=== PATIENT | male | born 1990 | race Caucasian/White ===

== ENCOUNTER → 2018-10-22 | Outpatient (CLI) | payer BC ==
--- NOTE | 2018-10-22 15:59 | KCIC ---
EXAM: Left knee, 4 views. HISTORY: Twisting injury. COMPARISON: None. FINDINGS: 4 views of the left knee are obtained. There is no fracture, dislocation or subluxation. There is a moderate suprapatellar effusion. IMPRESSION: Moderate left knee effusion. Electronically signed by: Galina Waite MD (10/22/2018 3:55 PM) [facility]
== END | disposition home or self-care (01) ==
LOC: KCIC 15:21
PROVIDERS: ATTEND Family Medicine
DX: M25.462 Effusion, left knee (principal)
CPT/HCPCS: 73564

== ENCOUNTER → 2018-11-11 | Outpatient (CLI) | payer BC ==
[~2018-11-11] MED LIST: ATOR10TA60 PO; CETI10TA22 PO; DIPH50CA PO; OMEP40CA5 PO; OXYC1TAB19 PO; PROM25TA10 PO
--- NOTE | 2018-11-11 14:43 | KCIC ---
MR of the left knee Indication: Pain for 2 or 3 months, some swelling. No known injury. Comparison: None are available. Technique: The standard multiplanar sequences are obtained. FINDINGS: Artifact: No significant image degradation. Medial meniscus: Tear of the posterior horn. Lateral meniscus: Intact. Anterior cruciate ligament: Intact. Posterior cruciate ligament: Intact Medial collateral ligament: Intact. Lateral structures: * Iliotibial band: Intact. * Lateral collateral ligament: Intact. * Biceps femoris tendon: Intact * Popliteus tendon attachment: Intact Extensive mechanism: * Patellar tendon: Intact * Quadriceps tendon: Intact * Retinacular structures: Intact Fluid: Moderate joint effusion. No significant Winters's cyst. Intra-articular bodies: None visualized Joint compartments * patellofemoral joint: Mild chondromalacia of the patella. * medial compartment: Moderate to severe chondral thinning of the medial femoral condyle with minimal subjacent marrow edema. * lateral compartment:Intact Bones: Tiny bone lesion within the proximal tibial metaphysis, adjacent to the growth plate scar, measures 5 mm, likely a small cartilaginous rest or other benign process. Soft tissue: Unremarkable Impression: 1. Medial meniscal tear. 2. Primary osteoarthritis. 3. Moderate joint effusion. Electronically signed by: Chris Hester MD (11/11/2018 2:38 PM) [email or web address]
== END | disposition home or self-care (01) ==
LOC: KCIC MRI 12:19
PROVIDERS: ATTEND Orthopaedic Surgery
DX: S83.242A Other tear of medial meniscus, current injury, left knee, initial encounter (principal); M17.12 Unilateral primary osteoarthritis, left knee; M25.462 Effusion, left knee; M22.42 Chondromalacia patellae, left knee; R60.0 Localized edema; X58.XXXA Exposure to other specified factors, initial encounter; Y93.89 Activity, other specified; Y92.89 Other specified places as the place of occurrence of the external cause; Y99.8 Other external cause status
CPT/HCPCS: 73721

== ENCOUNTER → 2018-12-03 | Day surgery (SDC) | payer BC ==
[~2018-12-03] VITALS: Ht 182.9 cm; Wt 157.9 kg
[~2018-12-03] MED LIST changes: +BUPIVAC MPF-EPI 0.5%-1:200000 30 ML VIAL. ONE; +BUPIVACAINE-EPI 0.25%-1:200000 MPF 30 ML VIAL. ONE; +DEXAMETHASONE SOD PHOS 20 MG/5 ML VIAL. ONE; +EPINEPHrine VIAL 30 MG/30 ML VIAL ONE; +FAMOTIDINE 20 MG/2 ML VIAL ONE; +HYDROmorphone 2 MG/ML VIAL IV PRN; +IV RINGERS,LACTATED 1000ML 1,000 ML IV SCH; +KETOROLAC 30 MG/ML VIAL. IV ONE; +KETOROLAC 30 MG/ML VIAL. ONE; +LIDOCAINE 1% PF 2 ML VIAL. ID PRN; +LIDOCAINE 2% PF Vial for OR 5 ML VIAL. ONE; +MORPHINE SULFATE 4 MG/ML VIAL. IV PRN; +ONDANSETRON PF 4 MG/2 ML VIAL. IV PRN; +ONDANSETRON PF 4 MG/2 ML VIAL. ONE; +PROCHLORPERAZINE 10 MG/2 ML VIAL. IV PRN; +PROPOFOL 20 ML IV ONE; +ceFAZolin SODIUM 3 GM in IV DEXTROSE 5% 100ML 100 ML IV PRN; +fentaNYL PF VIAL 100 MCG/2 ML VIAL IV PRN; +fentaNYL PF VIAL 100 MCG/2 ML VIAL ONE; +oxyCODONE/APAP 7.5/325 1 TAB TABLET PO ONE
--- NOTE | 2018-12-03 12:08 | PDOC1 ---
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 He twisted his knee or tweaked it some time before [place], around [place]. He's been limping since then. He thinks it might have happened when he was cleaning up after framing a house. He saw Dr. Rose who was concerned about internal injury such as meniscus tear. Twisted Knee around [place]. Started wearing brace. Reduced ROM and stability. Squatting kneeling and stairs exacerbate the pain. Twisting and uneven surfaces exacerbate the pain. Reports sharp pains anteriorly and a deep pain posteriorly. He reports giving way, locking, and swelling. He had a left knee MRI on 11/11/2018, which shows a left knee medial meniscus tear. Past Medical History Past Medical History obesity, seasonal allergies GI: GERD Past Surgical History Past Surgical History: Appendectomy, Tonsillectomy Family History Family History: No Significant Social History Smoke: No Current Medications Current Medications Current Medications Ondansetron HCl (Zofran) 4 mg PRN Q6HRS PRN IV NAUSEA/VOMITING; Start 12/03/18 at 07:00; Stop 12/04/18 at 06:59 Fentanyl Citrate (Fentanyl 2ml Vial) 25 mcg PRN Q5MIN PRN IV MILD PAIN; Start 12/03/18 at 07:00; Stop 12/04/18 at 06:59 Fentanyl Citrate (Fentanyl 2ml Vial) 50 mcg PRN Q5MIN PRN IV MODERATE TO SEVERE PAIN; Start 12/03/18 at 07:00; Stop 12/04/18 at 06:59 Morphine Sulfate (Morphine Sulfate) 1 mg PRN Q10MIN PRN IV SEVERE PAIN; Start 12/03/18 at 07:00; Stop 12/04/18 at 06:59 Ringer's Solution 1,000 ml @ 30 mls/hr Q24H IV Last administered on 12/03/18at 10:54; Start 12/03/18 at 07:00; Stop 12/03/18 at 18:59 Lidocaine HCl (Xylocaine-Mpf 1% 2ml Vial) 2 ml PRN 1X PRN ID IV START; Start at 07:00; Stop 12/04/18 at 06:59 Hydromorphone HCl (Dilaudid) 0.5 mg PRN Q10MIN PRN IV SEV PAIN, Second choice; Start 12/03/18 at 07:00; Stop 12/04/18 at 06:59 Prochlorperazine Edisylate (Compazine) 5 mg PACU PRN PRN IV NAUSEA, MRX1; Start 12/03/18 at 07:00; Stop 12/04/18 at 06:59 Cefazolin Sodium 3 gm/Dextrose 100 ml @ 200 mls/hr 1X PREOP PRN IV PRIOR TO PROCEDURE; Start 12/03/18 at 06:00; Stop 12/03/18 at 15:00 Epinephrine HCl (Adrenalin) 30 mg STK-MED ONCE .ROUTE Last administered on 12/03at 07:43; Start 12/03/18 at 07:05; Stop 12/03/18 at 07:06; Status DC Bupivacaine HCl/ Epinephrine Bitart (Sensorcaine-Epi 0.25%-1:[id number] Mpf) 30 ml STK-MED ONCE .ROUTE Last administered on 12/03/18at 07:43; Start 12/03/18 at 07: 05; Stop 12/03/18 at 07:06; Status DC Propofol 20 ml @ As Directed STK-MED ONCE IV ; Start 12/03/18 at 12:00; Stop at 12:01; Status DC Famotidine (Pepcid Vial) 20 mg STK-MED ONCE .ROUTE ; Start 12/03/18 at 12:00; Stop 12/03/18 at 12:01; Status DC Lidocaine HCl (Lidocaine Pf 2% Vial) 5 ml STK-MED ONCE .ROUTE ; Start 12/03/18 at 12:00; Stop 12/03/18 at 12:01; Status DC Active Scripts Active Reported Diphenhydramine Hcl 50 Mg Capsule 1 Cap PO PRN PRN Omeprazole 40 Mg Capsule.dr 1 Cap PO DAILY Zyrtec (Cetirizine Hcl) 10 Mg Tablet 1 Tab PO DAILY Atorvastatin Calcium 10 Mg Tablet 1 Tab PO DAILY Allergies Allergies: Coded Allergies: No Known Drug Allergies (Unverified , 12/03/18) ROS General: No: Chills, Night Sweats Eyes: No Double vision, No Eye Pain HEENT: No: Heacaches Hematological and Lymphatic: No: Blood Clots Respiratory: No: Shortness of breath Cardiovascular: No Chest Pain Gastrointestinal: No Nausea, No Vomiting, No Diarrhea, No Constipation Genitourinary: No Dysuria, No Hematuria Musculoskeletal: Yes Joint Pain Neurological: No Confusion, No Dizziness Physical Exam General: Alert, Cooperative, No acute distress HEENT: Atraumatic Lungs: Normal air movement Abdomen: Soft Extremities: No cyanosis, No edema, Normal pulses, Other (The LEFT knee shows normal alignment, no masses and no effusion. There is tenderness at the medial joint line and a positive medial Eileen's test. The lateral joint line shows no tenderness. Range of motion is 0-135 degrees. There is trace patellofemoral crepitus. Eileen's test is positive. There is medial joint line pain with deep flexion and especially with rotation of the tibia. The knee is stable to varus and valgus stress without subluxation or laxity. The ACL feels intact on Dk testing. Muscle strength is normal (5/5) for quadriceps and hamstrings, and muscle tone is normal. The skin is normal with no scars, rashes, lesions or ulcers. Light touch sensation is intact. No edema and no varicosities. Dorsalis pedis pulse is intact and capillary refill is normal ) Skin: No rashes, No breakdown, No significant lesion Neuro: Normal speech, Strength at 5/5 X4 ext, Sensation intact Vitals Vitals Vital Signs Date Time Temp Pulse Resp B/P (MAP) Pulse Ox O2 Delivery O2 Flow Rate FiO2 12/03/18 10:47 97.9 72 134/80 96 97.9 12/03/18 10:44 20 Images Images PROCEDURE: LOWER EXT JOINT WO LT MR of the left knee Indication: Pain for 2 or 3 months, some swelling. No known injury. Comparison: None are available. Technique: The standard multiplanar sequences are obtained. FINDINGS: Artifact: No significant image degradation. Medial meniscus: Tear of the posterior horn. Lateral meniscus: Intact. Anterior cruciate ligament: Intact. Posterior cruciate ligament: Intact Medial collateral ligament: Intact. Lateral structures: * Iliotibial band: Intact. * Lateral collateral ligament: Intact. * Biceps femoris tendon: Intact * Popliteus tendon attachment: Intact Extensive mechanism: * Patellar tendon: Intact * Quadriceps tendon: Intact * Retinacular structures: Intact Fluid: Moderate joint effusion. No significant Winters's cyst. Intra-articular bodies: None visualized Joint compartments * patellofemoral joint: Mild chondromalacia of the patella. * medial compartment: Moderate to severe chondral thinning of the medial femoral condyle with minimal subjacent marrow edema. * lateral compartment:Intact Bones: Tiny bone lesion within the proximal tibial metaphysis, adjacent to the growth plate scar, measures 5 mm, likely a small cartilaginous rest or other benign process. Soft tissue: Unremarkable Impression: 1. Medial meniscal tear. 2. Primary osteoarthritis. 3. Moderate joint effusion. Electronically signed by: Chris Hestre MD (11/11/2018 2:38 PM) [facility]. VTE Prophylaxis Ordered VTE Prophylaxis Devices: Yes VTE Pharmacological Prophylaxi: Yes Assessment/Plan Assessment/Plan left knee medial meniscus tear Plan left knee arthroscopy with medial meniscectomy JASON DOWD MD Dec 03, 2018 12:08
--- NOTE | 2018-12-03 13:17 | PDOC4 ---
Operative Note Operative Note Date of Procedure: December 03, 2018 Preoperative Diagnosis: Complex tear of medial meniscus, current injury, left knee S83.232 Postoperative Diagnosis: same Procedures Performed: left knee arthroscopy, surgical, with meniscectomy, medial, including meniscal shaving, including debridement/shaving of articular cartilage (chondroplasty) CPT 33930 Surgeon: Jason Smith MD Anesthesia: General Estimated Blood Loss: 10 mL Specimens: none Drains: none Complications: none Tourniquet time: 22 minutes INDICATIONS FOR PROCEDURE: The patient is a 28-year-old with left knee pain, unrelieved with nonoperative treatment. Exam and MRI are consistent with a meniscus tear. We talked about the risks and benefits of proceeding with an arthroscopic procedure. We talked about potential risks of ongoing pain, progressive arthritis, bleeding, infection, blood clots, or other potential surgical or anesthetic complications. All of the patient's questions about surgery were answered and they desired to proceed. Written consent was obtained. PROCEDURE IN DETAIL: The patient was identified in the preoperative holding area. The correct left knee was marked by me. The patient was taken to the operating room, where a general anesthetic was used. Preoperative antibiotics were given intravenously. A time-out procedure was performed. A tourniquet was placed on the upper thigh. Local anesthetic with epinephrine was injected sterilely into the knee joint. The limb was prepped sterilely and sterile drapes were applied. The limb was exsanguinated with an Esmarch bandage and the tourniquet was inflated to 350 mm Hg. Lateral and medial arthroscopy portals were established. The medial meniscus showed a posterior horn tear with unstable flaps. A meniscectomy was performed with basket forceps and the motorized shaver back to a smooth stable base, and the resection tapered into the middle one-third of the meniscus.The medial tibiofemoral joint showed chondromalacia Outerbridge grade III, and a shaving chondroplasty was performed removing unstable fragments of cartilage with the shaver.The intercondylar notch was free of loose bodies, and the ACL was intact. The lateral tibiofemoral joint showed a normal lateral meniscus. The lateral articular surfaces showed normal articular surfaces so no chondroplasty was required. The patellofemoral joint showed chondromalacia Outerbridge grade II, so a shaving chondroplasty was performed removing loose unstable fragments of articular cartilage. The suprapatellar pouch, medial and lateral gutters were free of loose bodies. Copious irrigation was used to drain all meniscal and chondral fragments, and the knee was drained of fluid. Steri-Strips were applied and additional local anesthetic with epinephrine was injected. A bulky sterile dressing was applied and the tourniquet was released. Needle and sponge counts were correct and there were no apparent complications. Jason Smith MD 12/03/2018 1:08 PM JASON SMITH MD Dec 03, 2018 13:17
[2018-12-03 14:00] VITALS: BP 145/80
== END | disposition home or self-care (01) ==
LOC: SURG 10:27
PROVIDERS: ATTEND Orthopaedic Surgery
DX: S83.232A Complex tear of medial meniscus, current injury, left knee, initial encounter (principal); M17.12 Unilateral primary osteoarthritis, left knee; M25.462 Effusion, left knee; K21.9 Gastro-esophageal reflux disease without esophagitis; E66.9 Obesity, unspecified; J30.2 Other seasonal allergic rhinitis; Z90.49 Acquired absence of other specified parts of digestive tract; Z98.890 Other specified postprocedural states; Z79.899 Other long term (current) drug therapy; X58.XXXA Exposure to other specified factors, initial encounter; Y93.89 Activity, other specified; Y92.89 Other specified places as the place of occurrence of the external cause; Y99.8 Other external cause status
CPT/HCPCS: 29881; A7015; J0171; J1100; J1885; J2001; J2405; J2704; J3010; J3490; J7120

== ENCOUNTER → 2019-08-08 | Outpatient (CLI) | payer BC ==
[2018-12-03 14:00] VITALS: BP 145/80
[~2019-08-08] MED LIST changes: -BUPIVAC MPF-EPI 0.5%-1:200000 30 ML VIAL. ONE; -BUPIVACAINE-EPI 0.25%-1:200000 MPF 30 ML VIAL. ONE; -DEXAMETHASONE SOD PHOS 20 MG/5 ML VIAL. ONE; -EPINEPHrine VIAL 30 MG/30 ML VIAL ONE; -FAMOTIDINE 20 MG/2 ML VIAL ONE; -HYDROmorphone 2 MG/ML VIAL IV PRN; -IV RINGERS,LACTATED 1000ML 1,000 ML IV SCH; -KETOROLAC 30 MG/ML VIAL. IV ONE; -KETOROLAC 30 MG/ML VIAL. ONE; -LIDOCAINE 1% PF 2 ML VIAL. ID PRN; -LIDOCAINE 2% PF Vial for OR 5 ML VIAL. ONE; -MORPHINE SULFATE 4 MG/ML VIAL. IV PRN; +OMEP40CA45 PO; -OMEP40CA5 PO; -ONDANSETRON PF 4 MG/2 ML VIAL. IV PRN; -ONDANSETRON PF 4 MG/2 ML VIAL. ONE; -PROCHLORPERAZINE 10 MG/2 ML VIAL. IV PRN; -PROPOFOL 20 ML IV ONE; -ceFAZolin SODIUM 3 GM in IV DEXTROSE 5% 100ML 100 ML IV PRN; -fentaNYL PF VIAL 100 MCG/2 ML VIAL IV PRN; -fentaNYL PF VIAL 100 MCG/2 ML VIAL ONE; -oxyCODONE/APAP 7.5/325 1 TAB TABLET PO ONE
--- NOTE | 2019-08-08 16:38 | KCIC ---
MR of the left knee HISTORY: Left knee pain medially. Prior meniscal surgery. COMPARISON: November 11, 2018. FINDINGS: Medial meniscus is small and blunted, particularly the body segment, compatible with prior meniscectomy. Subtle signal and undersurface irregularity at the posterior horn, which was not seen previously, raising the question of a small recurrent tear, sagittal images 21 and 20. No evidence of lateral meniscal tear. Anterior and posterior cruciate ligaments are intact. Medial collateral ligament demonstrates mild proximal thickening without acute tear. Iliotibial band unremarkable. Fibular collateral ligament, biceps femoris tendon and popliteus tendon are intact. Extensor mechanism is intact. Large joint effusion. No significant Winters's cyst. Full-thickness articular cartilage defect at the upper central femoral trochlea measuring 14 mm x 5 mm. This was not present on the prior study. Moderate to severe chondral thinning of the medial femoral condyle is again seen. Previously seen subchondral marrow edema is not evident on the current exam. Small flat structure identified within the anteromedial joint recess, axial series 3, image 19, measuring 4 x 3 x 1 mm. This may represent a small loose cartilaginous fragment from the femoral trochlea defect. No acute fracture or aggressive bone destruction. No significant Winters's cyst. IMPRESSION: 1. Development of full-thickness articular cartilage defect at the upper central trochlear groove. 2. Small flat structure within the anteromedial joint fluid likely a small displaced articular cartilage fragment. 3. Medial meniscectomy. Subtle signal at the inferior surface of the posterior horn was not seen previously, and at least raises the question of a very small recurrent tear. Electronically signed by: Chris Hester MD (08/08/2019 4:35 PM) [facility]
== END | disposition home or self-care (01) ==
LOC: KCIC MRI 15:29
PROVIDERS: ATTEND Orthopaedic Surgery
DX: M25.462 Effusion, left knee (principal); Z98.890 Other specified postprocedural states
CPT/HCPCS: 73721

== ENCOUNTER 2019-09-30 10:47 | Day surgery (SDC) | payer BC ==
[~2019-09-30 10:47] MED LIST changes: +AZEL137S3 NS; +HYDROmorphone 2 MG/ML VIAL IV PRN; +IV RINGERS,LACTATED 1000ML 1,000 ML IV SCH; +LEVO5TAB29 PO; +LIDOCAINE 1% PF 2 ML VIAL. ID PRN; +MONT10TA49 PO; +MORPHINE SULFATE 2 MG/ML VIAL. IV PRN; +ONDANSETRON PF 4 MG/2 ML VIAL. IV PRN; +PROCHLORPERAZINE 10 MG/2 ML VIAL. IV PRN; +ceFAZolin SODIUM 3 GM in IV DEXTROSE 5% 100ML 100 ML IV PRN; +fentaNYL PF VIAL 100 MCG/2 ML VIAL IV PRN
[2019-09-30] MEDS ORDERED: ceFAZolin SODIUM 3 GM in IV DEXTROSE 5% 100ML 100 ML IV PRN (12:00)
[2019-09-30] MEDS ORDERED: DEXAMETHASONE SOD PHOS 4 MG/ML VIAL ONE (12:44)
[2019-09-30] MEDS ORDERED: PROPOFOL 20 ML IV ONE ×2 (12:44→16:50)
[2019-09-30] MEDS ORDERED: ONDANSETRON PF 4 MG/2 ML VIAL. ONE (12:44)
[2019-09-30] MEDS ORDERED: fentaNYL PF VIAL 100 MCG/2 ML VIAL ONE ×2 (12:45→18:02)
[2019-09-30] MEDS ORDERED: KETOROLAC 30 MG/ML VIAL. ONE (12:48)
[2019-09-30] MEDS ORDERED: EPINEPHrine VIAL 30 MG/30 ML VIAL ONE (16:00)
[2019-09-30] MEDS ORDERED: BUPIVACAINE MPF 0.25% 30 ML VIAL. ONE ×2 (16:00)
[2019-09-30] MEDS ORDERED: LIDOCAINE 2% PF 5 ML VIAL. ONE (16:46)
[2019-09-30] MEDS ORDERED: DESFLURANE 61 TO 120 MINUTES IH ONE (17:55)
[2019-09-30] MEDS: fentaNYL PF VIAL 100 MCG/2 ML VIAL IV PRN ×2 (18:06→18:17)
[2019-09-30] MEDS ORDERED: ASPI325T11 PO (18:34)
[2019-09-30] MEDS ORDERED: OXYC1TAB15 PO (18:39)
--- NOTE | 2019-09-30 18:39 | PDOC4 ---
Operative Note Operative Note Date of Procedure: September 30, 2019 Preoperative Diagnosis: left knee medial meniscus tear, and loose body Postoperative Diagnosis: 1. complex tear of medial meniscus, current injury, left knee, initial encounter S83.232A 2. complex tear of lateral meniscus, current injury, left knee, initial enc ounter S83.272A 3. multiple cartilaginous loose bodies of the left knee, M23.42 Procedures Performed: 1. left knee arthroscopy, surgical, with meniscectomy, medial AND lateral, including meniscal shaving, including debridement/shaving of articular cartilage (chondroplasty) CPT 61864 2. Left knee arthroscopy surgical for removal of loose body, chondral fragmentation greater than five millimeters total, CPT 52288 Surgeon: Jason Smith MD Anesthesia: General Estimated Blood Loss: 5 mL Specimens: none Drains: none Complications: none Tourniquet time: 27 minutes Indications for Procedure: The patient is a 29-year-old with left knee pain unrelieved with nonoperative treatment. He had an arthroscopic meniscectomy of this same knee earlier this year. He has had recurrent knee effusions and mechan ical symptoms. An MRI shows a possible re-tear of the medial meniscus, and probable chondral fragmentation and chondral loose bodies in the knee. We talked about the risks and benefits of proceeding with an arthroscopic procedure. We talked about potential risks of ongoing pain, progressive arthritis, bleeding, infection, blood clots, or other potential surgical or anesthetic complications. All of the patient's questions about surgery were answered and they desired to proceed. Written consent was obtained. Description of Operation: The patient was identified in the preoperative holding area. The correct left knee was marked by me. The patient was taken to the operating room, where a general anesthetic was used. Preoperative antibiotics were given intravenously. A time-out procedure was performed. A tourniquet was placed on the upper thigh. Local anesthetic 20 mLs of 0.25% bupivacaine with epinephrine was injected using sterile technique into the knee joint. The limb was prepared circumferentially with ChloraPrep solution and sterile waterproof arthroscopy drapes were applied. The limb was exsanguinated with an Esmarch bandage and the tourniquet was inflated to 350 mm Hg. Lateral and medial arthroscopy portals were established. The medial tibiofemoral joint showed chondromalacia Outerbridge grade III, and a shaving chondroplasty was performed removing unstable fragments of cartilage with the shaver. The medial meniscus had previously been resected but had irregular edges posteriorly, and a revision meniscectomy was performed with basket forceps and the motorized shaver back to a new smooth stable base. The ACL and PCL appear intact arthroscopically. There was a chondral loose body in the intercondylar notch which was removed with the shaver, and it was greater than 5 mm in diameter. The lateral tibiofemoral joint showed a tiny lateral meniscus tear at the anterior horn, and this was removed with the arthroscopic shaver. The lateral articular surfaces showed chondromalacia Outerbridge grade I, so no chondr oplasty was required. The patellofemoral joint showed a defect of the cartilage of the trochlea, with loose unstable cartilage edges. This is approximately 5 mm wide and 15 mm anterior to posterior. There were loose flaps at the edges of the pothole, and chondroplasty was performed with basket forceps and the motorized shaver back to a smooth stable base. The patellofemoral joint shows slight chondromalacia, Outerbridge grade 2 and a gentle shaving chondroplasty was performed. The suprapatellar pouch, medial and lateral gutters showed countless chondral loose bodies, totaling much more than 5 mm in diameter. These were very mobile and difficult to get arthroscopic photos except for a collection in the lateral gutter which was photographed arthroscopically. I used copious saline irrigation, and thoroughly irrigated the joint to remove all of these chondral fragments. The knee was drained of fluid. The portals were closed with 3-0 Prolene interuppted sutures. Additional local anesthetic, 30 mLs of 0.25% bu pivacaine with ephinephrine was injected. A bulky sterile dressing was applied and the tourniquet was released. Needle and sponge counts were correct and there were no apparent complications. JASON SMITH MD Sep 30, 2019 18:39
[2019-09-30] MEDS ORDERED: PROM25TA10 PO (18:43)
[2019-09-30 18:49] VITALS: BP 137/74
[2019-09-30] MEDS ORDERED: oxyCODONE/APAP 5/325 1 TAB TABLET PO ONE (19:00)
== END 2019-09-30 18:59 | disposition home or self-care (01) ==
LOC: SURG 10:47
PROVIDERS: ATTEND Orthopaedic Surgery
DX: S83.232A Complex tear of medial meniscus, current injury, left knee, initial encounter (principal); S83.272A Complex tear of lateral meniscus, current injury, left knee, initial encounter; Z72.0 Tobacco use; Z98.890 Other specified postprocedural states; Z72.89 Other problems related to lifestyle; X58.XXXA Exposure to other specified factors, initial encounter; Y93.89 Activity, other specified; Y92.89 Other specified places as the place of occurrence of the external cause; Y99.8 Other external cause status
CPT/HCPCS: 29880; A7015; C1782; J1100; J1885; J2001; J2405; J2704; J3010; J3490; J0171

== ENCOUNTER 2021-09-09 07:48 | Observation (INO) | payer BC, OTHER ==
[~2021-09-09] VITALS: Ht 182.9 cm; Wt 140.0 kg
[~2021-09-09 07:48] MED LIST changes: +ASPI325T11 PO; -CETI10TA22 PO; +CETI10TA74 PO; -DIPH50CA PO; +DIPH50CA16 PO; -HYDROmorphone 2 MG/ML VIAL IV PRN; -IV RINGERS,LACTATED 1000ML 1,000 ML IV SCH; -LIDOCAINE 1% PF 2 ML VIAL. ID PRN; -MORPHINE SULFATE 2 MG/ML VIAL. IV PRN; -OMEP40CA45 PO; +OMEP40CA7 PO; -ONDANSETRON PF 4 MG/2 ML VIAL. IV PRN; +OXYC1TAB15 PO; -PROCHLORPERAZINE 10 MG/2 ML VIAL. IV PRN; -ceFAZolin SODIUM 3 GM in IV DEXTROSE 5% 100ML 100 ML IV PRN; -fentaNYL PF VIAL 100 MCG/2 ML VIAL IV PRN
[2021-09-09] MEDS ORDERED: PANTOPRAZOLE IV PUSH 40 MG VIAL. IVP ONE (08:15)
--- NOTE | 2021-09-09 08:28 | PHYS DOC ---
Past Medical History Past Surgical History: Appendectomy General Adult EDM: Chief Complaint: ABDOMINAL PAIN HPI: HPI: Patient is a 31 year old male who presents with bloody stools and epigastric pain. Began last night with bright red blood diarrhea. As the morning has progressed and has become a darker maroon-colored blood. States he has had 6 bloody stools in total. At about 0200 he reports the onset of abdominal pain. Epigastric. Constant. Not radiating. No history of similar pain or GI bleeding. Denies personal or family history of ulcerative colitis, Crohn's disease, IBD. He does admit to frequent ibuprofen use 800 mg every 12 hours when he has knee pain. No steroid use. He does drink approximately 2 beers per night. Denies history of liver disease. No blood thinners, aspirin, or clopidogrel. States that he began having chest discomfort and feeling like something was being stuck in his chest with swallowing about a year ago, and was started on omeprazole. Has never had an endoscopic evaluation. Review of Systems: Review of Systems: Constitutional: Denies fever or chills. [] Eyes: Denies change in visual acuity. [] HENT: Denies nasal congestion or sore throat. [] Respiratory: Denies cough or shortness of breath. [] Cardiovascular: Denies chest pain or edema. [] GI: Reports abdominal pain, diarrhea, bloody stools : Denies dysuria. [] Musculoskeletal: Denies back pain or joint pain. [] Integument: Denies rash. [] Neurologic: Denies headache, focal weakness or sensory changes. [] Endocrine: Denies polyuria or polydipsia. [] Lymphatic: Denies swollen glands. [] Psychiatric: Denies depression or anxiety. [] Heart Score: C/O Chest Pain: No Current Medications: Current Medications Medications (Trade) Dose Ordered Sig/Anatoliy Start Time Stop Time Status Last Admin Dose Admin Pantoprazole Sodium (PROTONIX VIAL for IV PUSH) 40 mg 1X ONCE 09/09/21 08:15 09/09/21 08:16 UNV Allergies: Allergies: Allergies Coded Allergies Type Severity Reaction Last Updated Verified No Known Drug Allergies 09/09/21 No Physical Exam: PE: Constitutional: Obese, no distress, slightly diaphoretic HENT: Normocephalic, atraumatic, Eyes: conjunctiva normal, no discharge. [] Neck: Normal range of motion, no tenderness, supple, no stridor. [] Cardiovascular: Mild tachycardia Lungs & Thorax: Bilateral breath sounds clear to auscultation [] Abdomen: Focal epigastric tenderness to palpation with mild involuntary guarding. Rectal: No external hemorrhoids. No dried melena or blood. No frankly bl ack/bloody material on JESENIA. Skin: Warm, no erythema, no rash. [] Extremities: No tenderness, no cyanosis, no clubbing, ROM intact, no edema. [] Neurologic: Alert and oriented X 3, normal motor function, normal sensory function, no focal deficits noted. [] Psychologic: Affect normal, judgement normal, mood normal. [] Current Patient Data: Vital Signs: Vital Signs Date Time Temp Pulse Resp B/P (MAP) Pulse Ox O2 Delivery O2 Flow Rate FiO2 09/09/21 07:58 97.3 18 172/108 (129) 98 Room Air 97.3 EKG: EKG: [] Radiology/Procedures: Radiology/Procedures: [] Impression: [facility] [address] [place] [address] IMAGING REPORT Signed PATIENT: VIRGEN MONIQUE ACCOUNT: [id number] : 1990 LOCATION: ER AGE: 31 SEX: M EXAM STATUS: REG ER ORD. PHYSICIAN: JESSICA RUIZ MD REASON: epigastric pain, chest pain with swallowing, hematochezia/melena PROCEDURE: CT ABD PELV W/ IV CONTRST ONLY CT of the abdomen and pelvis with contrast 09/09/2021 9:31 AM Indication: Reason: epigastric pain, chest pain with swallowing, hematochezia/melena Comparison study: None Technique: Multidetector CT imaging of the abdomen and pelvis was performed following the administration of IV contrast. Findings: The partially visualized lung bases demonstrate no acute abnormality. The liver, gallbladder, spleen, bilateral adrenal glands, bilateral kidneys, and pancreas, are grossly unremarkable. There is no bowel obstruction. No evidence of acute inflammatory change involving visualized bowel is identified. The appendix is been removed. Bladder is grossly unremarkable. No free fluid or free air is seen in the abdomen or pelvis. No acute osseous changes are identified. Impression: No evidence of acute intra-abdominal abnormality is identified. CT DOSING PQRS STATEMENT: One or more of the following individualized dose reduction techniques were utilized for this examination: 1. Automated exposure control 2. Adjustment of the mA and/or kV according to patient size 3. Use of iterative reconstruction technique Electronically signed by: Jameson Coronel MD (09/09/2021 9:32 AM) [id number] DICTATED and SIGNED BY: JAMESON CORONEL MD DATE: 09/09/21 [id number] Course & Med Decision Making: Course & Med Decision Making Pertinent Labs and Imaging studies reviewed. (See chart for details) Patient a 31-year-old male with history of GERD, esophageal globus sensation, arthritis with NSAID use who presents with epigastric pain and hematochezia transitioning to melena. On arrival is afebrile, hemodynamically stable. BP 172/108. Does have focal epigastric tenderness on exam. Presentation most concerning for upper GI bleed, likely from ulcerative source. Given Protonix. No liver history to suggest variceal bleed. Will hold on antibiotics. Stable so will hold on fluids or blood. Type and screen, CBC, CMP, fecal occult testing, and CT abdomen/pelvis for initial evaluation. 0828 CBC, CMP, CT reassuring. Fecal Occult +. Given concern for melena and history of multiple large volume bloody stools, will plan on admission for further evaluation. [address] Landon of GI, agrees with protonix. No further orders at this time. [id number] Sailaja Disclaimer: Sailaja Disclaimer: This electronic medical record was generated, in whole or in part, using a voice recognition dictation system. Departure Departure Impression: Primary Impression: GI bleed Additional Impressions: Epigastric pain Melena Disposition: ADMITTED INPATIENT Admitting Physician: JENY (Yu) Condition: STABLE Referrals: ANNAMARIE MOCK MD (PCP) JESSICA RUIZ MD Sep 09, 2021 08:28
[2021-09-09 08:47] LABS: BASO % 1 % (0-3); EOS # 0.1 x10^3/uL (0.0-0.7); EOS % 2 % (0-3); HEMOGLOBIN 14.9 g/dL (13.0-17.5); LYMPH # 1.3 x10^3/uL (1.0-4.8); LYMPH % 23 % (24-48); MEAN CORPUSCULAR HEMOGLOBIN 30 pg (25-35); MEAN CORPUSCULAR HGB CONC 33 g/dL (31-37); MEAN CORPUSCULAR VOLUME 89 fL (79-100); MONO # 0.5 x10^3/uL (0.0-1.1); MONO % 8 % (0-9); NEUT # 3.8 x10^3/uL (1.8-7.7); NEUT % 66 % (31-73); PLATELET COUNT 260 x10^3/uL (140-400); RED BLOOD COUNT 5.04 x10^6/uL (4.30-5.70); WHITE BLOOD COUNT 5.7 x10^3/uL (4.0-11.0)
[2021-09-09 09:00] LABS: CALCIUM 8.8 mg/dL (8.5-10.1); CREATININE 0.9 mg/dL (0.7-1.3); GFR 97.2; POTASSIUM 4.1 mmol/L (3.5-5.1)
[2021-09-09 09:04] LABS: ALBUMIN/GLOBULIN RATIO 1.1 (1.0-1.7); TOTAL BILIRUBIN 0.4 mg/dL (0.2-1.0); TOTAL PROTEIN 7.6 g/dL (6.4-8.2)
[2021-09-09 09:11] LABS: FECAL OB PT POSITIVE (NEG)
[2021-09-09] MEDS ORDERED: IOHEXOL 300 MG/ML 100ML VIAL. IV ONE (09:15)
--- NOTE | 2021-09-09 09:34 | RAD ---
CT of the abdomen and pelvis with contrast 09/09/2021 9:31 AM Indication: Reason: epigastric pain, chest pain with swallowing, hematochezia/melena Comparison study: None Technique: Multidetector CT imaging of the abdomen and pelvis was performed following the administrat ion of IV contrast. Findings: The partially visualized lung bases demonstrate no acute abnormality. The liver, gallbladder, spleen, bilateral adrenal glands, bilateral kidneys, and pancreas, are grossl y unremarkable. There is no bowel obstruction. No evidence of acute inflammatory change involving vis ualized bowel is identified. The appendix is been removed. Bladder is grossly unremarkable. No free f luid or free air is seen in the abdomen or pelvis. No acute osseous changes are identified. Impression: No evidence of acute intra-abdominal abnormality is identified. CT DOSING PQRS STATEMENT: One or more of the following individualized dose reduction techniques were utilized for this examinat ion: 1. Automated exposure control 2. Adjustment of the mA and/or kV according to patient size 3. Use of iterative reconstruction technique Electronically signed by: Jameson Jackson MD (09/09/2021 9:32 AM) [id number]
--- NOTE | 2021-09-09 10:10 | PDOC1 ---
History and Physical Date of Admission Date of Admission DATE: 09/09/21 TIME: 10:10 Identification/Chief Complaint Chief Complaint Blood in stool Source Source: Patient History of Present Illness History of Present Illness Mr Miarnda is a 31yo male with PMHx HLD, allergic rhinitis, arthritis, GERD presents to ED c/o bloody diarrhea x6 episodes beginning at midnight. Around 4 AM he started having sharp epigastric abdominal pain. Diarrhea was voluminous with bright red blood for the first couple episodes and pure blood for the last 4 episodes. Abdominal pain does not radiate sharp. No diarrhea since arriving here. Ongoing upper abdominal pain, some radiation to back. His primary physician started omeprazole for solid dyphagia a few years ag o.which he has continued since - dysphagia resolved. No weight loss. No previous EGD or colonoscopy. No GB, liver, pancreas, or PUD history. He has not any antibiotics or recent travel. His last 2 meals were omelette and meat loaf. Other people ate the same food and no one else has been sick. He works construction for living. He does do smokeless tobacco regularly and also drinks more than 7 drinks a week. Is been counseled on cutting back. He also has left knee arthritis for which he sees Dr. Bueno and takes ibuprofen 800 mg up to 3 times daily for this WBC 5.7, Hb 14.9, platelets 260, NA 137, K4.1, BUN 13, CR 0.9, glucose 110, ALT 66 AST 34 bilirubin 0.4, albumin 4 CT abdomen pelvis no acute findings Tachycardic in ED with nausea and pain 04/27. Admitted for further care. Past Medical History GI: GERD Past Surgical History Past Surgical History: Appendectomy, Tonsillectomy, Other (left knee arthroscopy) Family History Family History: Cancer (Breast in paternal aunt), Other (Ulcerative Colitis, father) Social History Smoke: <1 pack per day (Smokeless tobacco) ALCOHOL: social Drugs: None, Marijuana Current Problem List Problem List Problems Medical Problems: (1) Epigastric pain Status: Acute (2) GI bleed Status: Acute Current Medications Current Medications Current Medications Pantoprazole Sodium (PROTONIX VIAL for IV PUSH) 40 mg 1X ONCE IVP Last administered on 09/09/21at 08:37; Start 09/09/21 at 08:15; Stop 09/09/21 at 08:22; Status DC Iohexol (Omnipaque 300 Mg/ml) 75 ml 1X ONCE IV Last administered on 09/09/21at 09:11; Start 09/09/21 at 09:15; Stop 09/09/21 at 09:16; Status DC Active Scripts Active Aspirin Ec (Aspirin) 325 Mg Tablet.dr 1 Tab PO DAILY Reported Promethazine Hcl 25 Mg Tablet 1 Tab PO PRN Q6HRS MDD 4 1 tablet every 6 hrs for the first 48 hr, then as needed for nausea Percocet 5-325 Mg Tablet (Oxycodone/Acetaminophen) 1 Each Tablet 1 Tab PO PRN Q4HRS PRN MDD 12 Tablet(s) Xyzal (Levocetirizine Dihydrochloride) 5 Mg Tablet 5 Mg PO DAILY Montelukast Sodium Tablet (Montelukast Sodium) 10 Mg Tablet 10 Mg PO DAILY Azelastine Hcl 137 Mcg/0.137 Ml [place].pump 1 [place] NS BID Omeprazole 40 Mg Capsule.dr 1 Cap PO DAILY Atorvastatin Calcium 10 Mg Tablet 1 Tab PO DAILY Allergies Allergies: Coded Allergies: No Known Drug Allergies (Unverified , 09/09/21) ROS General: No: Chills, Night Sweats, Fatigue, Malaise, Appetite, Other PSYCHOLOGICAL ROS: No: Anxiety, Behavioral Disorder, Concentration difficultie, Decreased libido, Depression, Disorientation, Hallucinations, Hostility, Irritablity, Memory difficulties, Mood Swings, Obsessive thoughts, Physical abuse, Sexual abuse, Sleep disturbances, Suicidal ideation, Other Eyes: No Blurry vision, No Decreased vision, No Double vision, No Dry eyes, No Excessive tearing, No Eye Pain, No Itchy Eyes, No Loss of vision, No Photophobia, No Scotomata, No Uses contacts, No Uses glasses, No Other HEENT: No: Heacaches, Visual Changes, Hearing change, Nasal congestion, Nasal discharge, Oral lesions, Sinus pain, Sore Throat, Epistaxis, Sneezing, Snoring, Tinnitus, Vertigo, Vocal changes, Other ALLERGY AND IMMUNOLOGY: No: Hives, Insect Bite Sensitivity, Itchy/Watery Eyes, Nasal Congestion, Post Nasal Drip, Seasonal Allergies, Other Hematological and Lymphatic: No: Bleeding Problems, Blood Clots, Blood Transfusions, Brusing, Night Sweats, Pallor, Swollen Lymph Nodes, Other ENDOCRINE: No: Breast Changes, Galactorrhea, Hair Pattern Changes, Hot Flashes, Malaise/lethargy, Mood Swings, Palpitations, Polydipsia/polyuria, Skin Changes, Temperature Intolerance, Unexpected Weight Changes, Other Breast: No New/Changing Breast Lumps, No Nipple changes, No Nipple discharge, No Other Respiratory: No: Cough, Hemoptysis, Orthopnea, Pleuritic Pain, Shortness of breath, SOB with excertion, Sputum Changes, Stridor, Tachypnea, Wheezing, Other Cardiovascular: No Chest Pain, No Palpitations, No Orthopnea, No Paroxysmal Noc. Dyspnea, No Edema, No Lt Headedness, No Other Gastrointestinal: Yes Abdominal Pain, Yes Melena; No Nausea, No Vomiting, No Diarrhea, No Constipation, No Hematochezia, No Other Genitourinary: No Dysuria, No Frequency, No Incontinence, No Hematuria, No Rete ntion, No Discharge, No Urgency, No Pain, No Flank Pain, No Other, No , No , No , No , No , No , No Musculoskeletal: No Gait Disturbance, No Joint Pain, No Joint Stiffness, No Joint Swelling, No Muscle Pain, No Muscular Weakness, No Pain In:, No Swelling In:, No Other Neurological: No Behavorial Changes, No Bowel/Bladder ControlChng, No Confusion, No Dizziness, No Gait Disturbance, No Headaches, No Impaired Coord/balance, No Memory Loss, No Numbness/Tingling, No Seizures, No Speech Problems, No Tremors, No Visual Changes, No Weakness, No Other Skin: No Dry Skin, No Eczema, No Hair Changes, No Lumps, No Mole Changes, No Mottling, No Nail Changes, No Pruritus, No Rash, No Skin Lesion Changes, No Other, No Acne Physical Exam General: Alert, Oriented X3, Cooperative, mild distress HEENT: Atraumatic, PERRLA, EOMI, Mucous membr. moist/pink Lungs: Clear to auscultation, Normal air movement Heart: S1S2, RRR, no thrills, no rubs, no gallops, no murmurs Abdomen: Normal bowel sounds, Soft, No hepatosplenomegaly, No masses, Other (Epigastric tenderness) Rectal Exam: not examined Extremities: No clubbing, No cyanosis, No edema, Normal pulses, No tenderness/swelling Skin: No rashes, No breakdown, No significant lesion Neuro: Normal gait, Normal speech, Strength at 5/5 X4 ext, Normal tone, Sensation intact, Cranial nerves 3-12 NL, Reflexes 2+ Psych/Mental Status: Mental status NL, Mood NL Vitals Vitals Vital Signs Date Time Temp Pulse Resp B/P (MAP) Pulse Ox O2 Delivery O2 Flow Rate FiO2 09/09/21 08:47 92 16 138/73 (94) 99 Room Air 09/09/21 07:58 97.3 97.3 Labs Labs Laboratory Tests Test 09/09/21 08:17 09/09/21 08:39 Stool Occult Blood Positive (NEG) White Blood Count 5.7 x10^3/uL (4.0-11.0) Red Blood Count 5.04 x10^6/uL (4.30-5.70) Hemoglobin 14.9 g/dL (13.0-17.5) Hematocrit 45.0 % (39.0-53.0) Mean Corpuscular Volume 89 fL (79-100) Mean Corpuscular Hemoglobin 30 pg (25-35) Mean Corpuscular Hemoglobin Concent 33 g/dL (31-37) Red Cell Distribution Width 12.0 % (11.5-14.5) Platelet Count 260 x10^3/uL (140-400) Neutrophils (%) (Auto) 66 % (31-73) Lymphocytes (%) (Auto) 23 % (24-48) Monocytes (%) (Auto) 8 % (0-9) Eosinophils (%) (Auto) 2 % (0-3) Basophils (%) (Auto) 1 % (0-3) Neutrophils # (Auto) 3.8 x10^3/uL (1.8-7.7) Lymphocytes # (Auto) 1.3 x10^3/uL (1.0-4.8) Monocytes # (Auto) 0.5 x10^3/uL (0.0-1.1) Eosinophils # (Auto) 0.1 x10^3/uL (0.0-0.7) Basophils # (Auto) 0.0 x10^3/uL (0.0-0.2) Sodium Level 137 mmol/L (136-145) Potassium Level 4.1 mmol/L (3.5-5.1) Chloride Level 101 mmol/L (98-107) Carbon Dioxide Level 27 mmol/L (21-32) Anion Gap 9 (6-14) Blood Urea Nitrogen 13 mg/dL (8-26) Creatinine 0.9 mg/dL (0.7-1.3) Estimated GFR (Cockcroft-Gault) 97.2 BUN/Creatinine Ratio 14 (6-20) Glucose Level 110 mg/dL (70-99) Calcium Level 8.8 mg/dL (8.5-10.1) Total Bilirubin 0.4 mg/dL (0.2-1.0) Aspartate Amino Transf (AST/SGOT) 34 U/L (15-37) Alanine Aminotransferase (ALT/SGPT) 66 U/L (16-63) Alkaline Phosphatase 95 U/L (46-116) Total Protein 7.6 g/dL (6.4-8.2) Albumin 4.0 g/dL (3.4-5.0) Albumin/Globulin Ratio 1.1 (1.0-1.7) Laboratory Tests Test 09/09/21 08:17 09/09/21 08:39 Stool Occult Blood Positive (NEG) White Blood Count 5.7 x10^3/uL (4.0-11.0) Red Blood Count 5.04 x10^6/uL (4.30-5.70) Hemoglobin 14.9 g/dL (13.0-17.5) Hematocrit 45.0 % (39.0-53.0) Mean Corpuscular Volume 89 fL (79-100) Mean Corpuscular Hemoglobin 30 pg (25-35) Mean Corpuscular Hemoglobin Concent 33 g/dL (31-37) Red Cell Distribution Width 12.0 % (11.5-14.5) Platelet Count 260 x10^3/uL (140-400) Neutrophils (%) (Auto) 66 % (31-73) Lymphocytes (%) (Auto) 23 % (24-48) Monocytes (%) (Auto) 8 % (0-9) Eosinophils (%) (Auto) 2 % (0-3) Basophils (%) (Auto) 1 % (0-3) Neutrophils # (Auto) 3.8 x10^3/uL (1.8-7.7) Lymphocytes # (Auto) 1.3 x10^3/uL (1.0-4.8) Monocytes # (Auto) 0.5 x10^3/uL (0.0-1.1) Eosinophils # (Auto) 0.1 x10^3/uL (0.0-0.7) Basophils # (Auto) 0.0 x10^3/uL (0.0-0.2) Sodium Level 137 mmol/L (136-145) Potassium Level 4.1 mmol/L (3.5-5.1) Chloride Level 101 mmol/L (98-107) Carbon Dioxide Level 27 mmol/L (21-32) Anion Gap 9 (6-14) Blood Urea Nitrogen 13 mg/dL (8-26) Creatinine 0.9 mg/dL (0.7-1.3) Estimated GFR (Cockcroft-Gault) 97.2 BUN/Creatinine Ratio 14 (6-20) Glucose Level 110 mg/dL (70-99) Calcium Level 8.8 mg/dL (8.5-10.1) Total Bilirubin 0.4 mg/dL (0.2-1.0) Aspartate Amino Transf (AST/SGOT) 34 U/L (15-37) Alanine Aminotransferase (ALT/SGPT) 66 U/L (16-63) Alkaline Phosphatase 95 U/L (46-116) Total Protein 7.6 g/dL (6.4-8.2) Albumin 4.0 g/dL (3.4-5.0) Albumin/Globulin Ratio 1.1 (1.0-1.7) Images Images CT of the abdomen and pelvis with contrast 09/09/2021 9:31 AM The partially visualized lung bases demonstrate no acute abnormality. The liver, gallbladder, spleen, bilateral adrenal glands, bilateral kidneys, and pancreas, are grossly unremarkable. There is no bowel obstruction. No evidence of acute inflammatory change involving visualized bowel is identified. The appendix is been removed. Bladder is grossly unremarkable. No free fluid or free air is seen in the abdomen or pelvis. No acute osseous changes are identified. Impression: No evidence of acute intra-abdominal abnormality is identified. VTE Prophylaxis Ordered VTE Prophylaxis Devices: Yes VTE Pharmacological Prophylaxi: No Assessment/Plan Assessment/Plan A/P: Intractable abdominal pain- IV morphine -->fentanyl. Possibly from UGIB, possibly alcoholic gastritis Bloody diarrhea - will r/o infectious etiology, salmonella/shigella/e. coli. GI consulted. Trend Hb. with family h/o UC will check CRP as well. Needs outpatient colonoscopy and fecal calprotectin. HLD - statin Morbid obesity - counseled on lifestyle modification Tobacco use - counseled on cessation Seasonal allergies - cont PPI GERD - restart PPI, counseled on ETOH and tobacco cessation FEN - NPO PPX - PPI IV FULL CODE Dispo - inpatient, monitor Hb, Justifications for Admission Other Justification CESILIA MARIE MD Sep 09, 2021 10:10
[2021-09-09] MEDS ORDERED: ONDANSETRON PF 4 MG/2 ML VIAL. IVP PRN ×2 (10:15→14:00)
[2021-09-09] MEDS ORDERED: MORPHINE SULFATE 4 MG/ML INJ. IVP ONE (11:30)
--- NOTE | 2021-09-09 11:36 | PDOC2 ---
GI CONSULT Date of Service: DATE: 09/09/21 TIME: : Reason For Consult: GI bleed HPI: HPI: 31 y/o male seen in ER w/ Lissy present at bedside. In usual state of health til midnight - began with diarrhea. Many episodes over the next six hours - first with a little red blood, then darker blood. Later associated w/ stabbing upper mid/left abdominal pain, also had some retching. No diarrhea since arriving here. Ongoing upper abdominal pain, some radiation to back. Normal rectal exam per ER physician documentation, +Hemoccult. A couple years ago had some solid food and occasionally liquid dysphagia - felt in midchest, sometimes had to cough food up. PCP started omeprazole which he has continued since - dysphagia resolved. Never has acid reflux or heartburn. Over the past few months has some "gagging" in the mornings - thought related to sinuses/allergies/phlegm, also vomits some bile after gagging sometimes. Stable appetite and weight. Typically no issues w/ diarrhea, constipation, or abdominal pain. Has seen a tiny amount of red blood with wiping infrequently in the past. No previous EGD or colonoscopy. No GB, liver, pancreas, or PUD history. No recent antibiotic use or sick contacts. H/o knee pain - takes ibuprofen 800mg once or twice weekly. Chart mentions ASA - he denies. Unvaccinated for COVID - "I don't trust it." PMH: PMH: seasonal allergies, HLD tonsillectomy, appendectomy, left knee surgery FH: Family History: No pertinent hx (denies IBD, GI cancers), Other (father had stomach ulcers, has frequent scopes, required hospitalization) Social History: Smoke: No (chewing tobacco) ALCOHOL: other (couple beers daily) Drugs: Marijuana (daily) ROS: GEN: Denies fevers, chills, sweats HEENT: Denies blurred vision, sore throat CV: Denies chest pain RESP: Denies shortness of air, cough GI: Per HPI : Denies hematuria, dysuria ENDO: Denies weight changes NEURO: Denies confusion, dizziness MSK: Denies weakness, joint pain/swelling SKIN: Denies jaundice, pruritus Vitals: Vitals: Vital Signs Date Time Temp Pulse Resp B/P (MAP) Pulse Ox O2 Delivery O2 Flow Rate FiO2 09/09/21 08:47 92 16 138/73 (94) 99 Room Air 09/09/21 07:58 97.3 97.3 Labs: Labs: Laboratory Tests Test 09/09/21 08:17 09/09/21 08:39 Stool Occult Blood Positive (NEG) White Blood Count 5.7 x10^3/uL (4.0-11.0) Red Blood Count 5.04 x10^6/uL (4.30-5.70) Hemoglobin 14.9 g/dL (13.0-17.5) Hematocrit 45.0 % (39.0-53.0) Mean Corpuscular Volume 89 fL (79-100) Mean Corpuscular Hemoglobin 30 pg (25-35) Mean Corpuscular Hemoglobin Concent 33 g/dL (31-37) Red Cell Distribution Width 12.0 % (11.5-14.5) Platelet Count 260 x10^3/uL (140-400) Neutrophils (%) (Auto) 66 % (31-73) Lymphocytes (%) (Auto) 23 % (24-48) Monocytes (%) (Auto) 8 % (0-9) Eosinophils (%) (Auto) 2 % (0-3) Basophils (%) (Auto) 1 % (0-3) Neutrophils # (Auto) 3.8 x10^3/uL (1.8-7.7) Lymphocytes # (Auto) 1.3 x10^3/uL (1.0-4.8) Monocytes # (Auto) 0.5 x10^3/uL (0.0-1.1) Eosinophils # (Auto) 0.1 x10^3/uL (0.0-0.7) Basophils # (Auto) 0.0 x10^3/uL (0.0-0.2) Sodium Level 137 mmol/L (136-145) Potassium Level 4.1 mmol/L (3.5-5.1) Chloride Level 101 mmol/L (98-107) Carbon Dioxide Level 27 mmol/L (21-32) Anion Gap 9 (6-14) Blood Urea Nitrogen 13 mg/dL (8-26) Creatinine 0.9 mg/dL (0.7-1.3) Estimated GFR (Cockcroft-Gault) 97.2 BUN/Creatinine Ratio 14 (6-20) Glucose Level 110 mg/dL (70-99) Calcium Level 8.8 mg/dL (8.5-10.1) Total Bilirubin 0.4 mg/dL (0.2-1.0) Aspartate Amino Transf (AST/SGOT) 34 U/L (15-37) Alanine Aminotransferase (ALT/SGPT) 66 U/L (16-63) Alkaline Phosphatase 95 U/L (46-116) Total Protein 7.6 g/dL (6.4-8.2) Albumin 4.0 g/dL (3.4-5.0) Albumin/Globulin Ratio 1.1 (1.0-1.7) Allergies: Coded Allergies: No Known Drug Allergies (Unverified , 09/09/21) Medications: Current Medications Medications (Trade) Dose Ordered Sig/Anatoliy Route PRN Reason Start Time Stop Time Status Last Admin Dose Admin Pantoprazole Sodium (PROTONIX VIAL for IV PUSH) 40 mg 1X ONCE IVP 09/09/21 08:15 09/09/21 08:22 DC 09/09/21 08:37 Iohexol (Omnipaque 300 Mg/ml) 75 ml 1X ONCE IV 09/09/21 09:15 09/09/21 09:16 DC 09/09/21 09:11 Imaging: Imaging: CT A/P Findings: The partially visualized lung bases demonstrate no acute abnormality. The liver, gallbladder, spleen, bilateral adrenal glands, bilateral kidneys, and pancreas, are grossly unremarkable. There is no bowel obstruction. No evidence of acute inflammatory change involving visualized bowel is identified. The a ppendix is been removed. Bladder is grossly unremarkable. No free fluid or free air is seen in the abdomen or pelvis. No acute osseous changes are identified. Impression: No evidence of acute intra-abdominal abnormality is identified. PE: GEN: NAD HEENT: Atraumatic, PERRL LUNGS: CTAB HEART: RRR ABD: NABS, S/ND, left epigastric tenderness EXTREMITY: No edema SKIN: clammy NEURO/PSYCH: A & O 3 A/P: A/P: Diarrhea/hematochezia, upper abdominal pain, nausea/retching H/o dysphagia/suspected GERD - resolved w/ PPI x 2 years CRC screen - average risk H/o knee pain, NSAIDs PRN Daily alcohol and marijuana -- Unclear cause - labs and imaging unremarkable, vitals stable (was hypertensive initially). Observe for now - will return to see later today w/ Dr. Landon and review CT images. Continue PPI, consider stool studies. MAGALIS YAP Sep 09, 2021 11:36
[2021-09-09 13:30] VITALS: BP 170/110
[2021-09-09] MEDS ORDERED: fentaNYL PF VIAL 100 MCG/2 ML VIAL IVP PRN (14:00)
[2021-09-09 15:00] VITALS: BP 150/97
[2021-09-09] MEDS ORDERED: ZOLPIDEM 5 MG TABLET. PO PRN (15:45)
[2021-09-09 18:59] VITALS: BP 134/86
[2021-09-09 23:00] VITALS: BP 138/80
[2021-09-10 02:31] VITALS: BP 132/74
[2021-09-10 05:28] LABS: HEMATOCRIT 44.5 % (39.0-53.0); HEMOGLOBIN 14.9 g/dL (13.0-17.5); RED BLOOD COUNT 4.95 x10^6/uL (4.30-5.70); RED CELL DISTRIBUTION WIDTH 12.2 % (11.5-14.5); WHITE BLOOD COUNT 5.4 x10^3/uL (4.0-11.0)
[2021-09-10 07:00] VITALS: BP 124/91
[2021-09-10] MEDS ORDERED: PANTOPRAZOLE IV PUSH 40 MG VIAL. IVP SCH (07:30)
--- NOTE | 2021-09-10 09:00 | PDOC ---
[employer] PROGRESS NOTE Date of Service DOS: DATE: 09/10/21 TIME: 08:59 Chief Complaint Chief Complaint A/P: Intractable abdominal pain- IV morphine -->fentanyl. Possibly from UGIB, possibly alcoholic gastritis Bloody diarrhea - will r/o infectious etiology, salmonella/shigella/e. coli. GI consulted. Trend Hb. with family h/o UC will check CRP as well. Needs outpatient colonoscopy and fecal calprotectin. HLD - statin Morbid obesity - counseled on lifestyle modification Tobacco use - counseled on cessation Seasonal allergies - cont PPI GERD - restart PPI, counseled on ETOH and tobacco cessation FEN - ADAT PPX - PPI IV FULL CODE Dispo - inpatient, monitor Hb, History of Present Illness History of Present Illness Mr Miranda is a 31yo male with PMHx HLD, allergic rhinitis, arthritis, GERD presents to ED c/o bloody diarrhea x6 episodes beginning at midnight. Around 4 AM he started having sharp epigastric abdominal pain. Diarrhea was voluminous with bright red blood for the first couple episodes and pure blood for the last 4 episodes. Abdominal pain does not radiate sharp. No diarrhea since arriving here. Ongoing upper abdominal pain, some radiation t o back. His primary physician started omeprazole for solid dyphagia a few years ago.which he has continued since - dysphagia resolved. No weight loss. No previous EGD or colonoscopy. No GB, liver, pancreas, or PUD history. He has not any antibiotics or recent travel. His last 2 meals were omelette and meat loaf. Other people ate the same food and no one else has been sick. He works construction for living. He does do smokeless tobacco regularly and also drinks more than 7 drinks a week. Is been counseled on cutting back. He also has left knee arthritis for which he sees Dr. Bueno and takes ibuprofen 800 mg up to 3 times daily for this WBC 5.7, Hb 14.9, platelets 260, NA 137, K4.1, BUN 13, CR 0.9, glucose 110, ALT 66 AST 34 bilirubin 0.4, albumin 4 CT abdomen pelvis no acute findings Tachycardic in ED with nausea and pain /10. Admitted for further care. Had 1 bowel movement this morning pain is significantly better. Bowel movement was on some soft stool no significant blood. Hb 14.9. Discussed with GI view. Advance diet go home with outpatient GI follow-up take PPI twice daily for the next month. Smoking cessation and alcohol reduction counseling undertaken for 12 minutes. Vitals/I&O Vitals/I&O: Vital Signs Date Time Temp Pulse Resp B/P (MAP) Pulse Ox O2 Delivery O2 Flow Rate FiO2 09/10/21 07:00 98.4 76 19 124/91 (102) 94 Room Air 98.4 Physical Exam General: Alert, Oriented X3, Cooperative, mild distress Abdomen: Normal bowel sounds, Soft, No hepatosplenomegaly, No masses, Other (Epigastric tenderness) Extremities: No clubbing, No cyanosis, No edema, Normal pulses, No tenderness/swelling Skin: No rashes, No breakdown, No significant lesion Labs Labs: Laboratory Tests Test 09/10/21 04:10 White Blood Count 5.4 x10^3/uL (4.0-11.0) Red Blood Count 4.95 x10^6/uL (4.30-5.70) Hemoglobin 14.9 g/dL (13.0-17.5) Hematocrit 44.5 % (39.0-53.0) Mean Corpuscular Volume 90 fL (79-100) Mean Corpuscular Hemoglobin 30 pg (25-35) Mean Corpuscular Hemoglobin Concent 33 g/dL (31-37) Red Cell Distribution Width 12.2 % (11.5-14.5) Platelet Count 254 x10^3/uL (140-400) Assessment and Plan Assessmemt and Plan Problems Medical Problems: (1) Epigastric pain Status: Acute (2) GI bleed Status: Acute (3) Melena Status: Acute Comment Review of Relevant I have reviewed the following items elsy (where applicable) has been applied. Medications: Current Medications Medications (Trade) Dose Ordered Sig/Anatoliy Route PRN Reason Start Time Stop Time Status Last Admin Dose Admin Iohexol (Omnipaque 300 Mg/ml) 75 ml 1X ONCE IV 09/09/21 09:15 09/09/21 09:16 DC 09/09/21 09:11 Ondansetron HCl (Zofran) 4 mg PRN Q8HRS PRN IVP NAUSEA/VOMITING 09/09/21 10:15 09/09/21 15:45 DC 09/09/21 11:33 Morphine Sulfate (Morphine Sulfate) 4 mg 1X ONCE IVP 09/09/21 11:30 09/09/21 11:31 DC 09/09/21 11:33 Pantoprazole Sodium (PROTONIX VIAL for IV PUSH) 40 mg DAILY IVP 09/10/21 07:30 09/10/21 08:46 Ondansetron HCl (Zofran) 4 mg PRN Q4HRS PRN IVP NAUSEA/VOMITING 09/09/21 14:00 09/09/21 16:02 Fentanyl Citrate (Fentanyl 2ml Vial) 25 mcg PRN Q3HRS PRN IVP SEVERE PAIN 7-10 09/09/21 14:00 09/09/21 16:03 Justifications for Admission Other Justification CESILIA MARIE MD Sep 10, 2021 09:00
--- NOTE | 2021-09-10 09:56 | PDOC ---
Date of Service: DATE: 09/10/21 TIME: 09:52 Subjective: Subjective: Feels better, slept well. No diarrhea (or any stools), no bleeding. No nausea or gagging. Upper abd pain is better. Feels hungry - would like to try liquids. Objective: Vital Signs: Vital Signs Date Time Temp Pulse Resp B/P (MAP) Pulse Ox O2 Delivery O2 Flow Rate FiO2 09/10/21 08:00 Room Air 09/10/21 07:00 98.4 76 19 124/91 (102) 94 98.4 Labs: Laboratory Tests Test 09/10/21 04:10 White Blood Count 5.4 x10^3/uL Red Blood Count 4.95 x10^6/uL Hemoglobin 14.9 g/dL Hematocrit 44.5 % Mean Corpuscular Volume 90 fL Mean Corpuscular Hemoglobin 30 pg Mean Corpuscular Hemoglobin Concent 33 g/dL Red Cell Distribution Width 12.2 % Platelet Count 254 x10^3/uL PE: GEN: NAD, nurse present LUNGS: CTAB HEART: RRR ABD: BS+, LUQ discomfort - less - also some tracking to LLQ (mild) NEURO/PSYCH: A & O 3 A/P: Diarrhea/hematochezia, upper abdominal pain, nausea/retching - resolving - ?abnormal left colon on CT H/o dysphagia/suspected GERD - controlled w/ PPI -- Improved/stable. Okay to advance diet as tolerated and consider DC soon. We'll follow-up as outpt for scopes. Justicifation of Admission Dx: Justifications for Admission: Justification of Admission Dx: Yes MAGALIS YAP Sep 10, 2021 09:56
--- NOTE | 2021-09-10 10:24 | NUR ---
SW following. Discussed with RN, pt from home, room air, ADAT. GI following. Dr. Nicholas advised likely discharge home today. RN advised no SW needs. SW will continue to follow.
[2021-09-10] MEDS ORDERED: OMEP40CA7 PO (10:54)
--- NOTE | 2021-09-10 10:59 | PDOC3 ---
Discharge Summary Visit Information Date of Admission: Sep 09, 2021 Date of Discharge: Sep 10, 2021 Admitting Diagnosis: Lower GI bleed, intractable abdominal pain Final Diagnosis Problems Medical Problems: (1) Epigastric pain Status: Acute (2) GI bleed Status: Acute (3) Melena Status: Acute Brief Hospital Course Allergies Allergies Coded Allergies Type Severity Reaction Last Updated Verified No Known Drug Allergies 09/09/21 No Vital Signs Vital Signs Date Time Temp Pulse Resp B/P (MAP) Pulse Ox O2 Delivery O2 Flow Rate FiO2 09/10/21 08:00 Room Air 09/10/21 07:00 98.4 76 19 124/91 (102) 94 98.4 Lab Results Laboratory Tests Test 09/09/21 08:17 09/09/21 08:39 09/10/21 04:10 Stool Occult Blood Positive (NEG) White Blood Count 5.7 x10^3/uL (4.0-11.0) 5.4 x10^3/uL (4.0-11.0) Red Blood Count 5.04 x10^6/uL (4.30-5.70) 4.95 x10^6/uL (4.30-5.70) Hemoglobin 14.9 g/dL (13.0-17.5) 14.9 g/dL (13.0-17.5) Hematocrit 45.0 % (39.0-53.0) 44.5 % (39.0-53.0) Mean Corpuscular Volume 89 fL (79-100) 90 fL (79-100) Mean Corpuscular Hemoglobin 30 pg (25-35) 30 pg (25-35) Mean Corpuscular Hemoglobin Concent 33 g/dL (31-37) 33 g/dL (31-37) Red Cell Distribution Width 12.0 % (11.5-14.5) 12.2 % (11.5-14.5) Platelet Count 260 x10^3/uL (140-400) 254 x10^3/uL (140-400) Neutrophils (%) (Auto) 66 % (31-73) Lymphocytes (%) (Auto) 23 % (24-48) Monocytes (%) (Auto) 8 % (0-9) Eosinophils (%) (Auto) 2 % (0-3) Basophils (%) (Auto) 1 % (0-3) Neutrophils # (Auto) 3.8 x10^3/uL (1.8-7.7) Lymphocytes # (Auto) 1.3 x10^3/uL (1.0-4.8) Monocytes # (Auto) 0.5 x10^3/uL (0.0-1.1) Eosinophils # (Auto) 0.1 x10^3/uL (0.0-0.7) Basophils # (Auto) 0.0 x10^3/uL (0.0-0.2) Sodium Level 137 mmol/L (136-145) Potassium Level 4.1 mmol/L (3.5-5.1) Chloride Level 101 mmol/L (98-107) Carbon Dioxide Level 27 mmol/L (21-32) Anion Gap 9 (6-14) Blood Urea Nitrogen 13 mg/dL (8-26) Creatinine 0.9 mg/dL (0.7-1.3) Estimated GFR (Cockcroft-Gault) 97.2 BUN/Creatinine Ratio 14 (6-20) Glucose Level 110 mg/dL (70-99) Calcium Level 8.8 mg/dL (8.5-10.1) Total Bilirubin 0.4 mg/dL (0.2-1.0) Aspartate Amino Transf (AST/SGOT) 34 U/L (15-37) Alanine Aminotransferase (ALT/SGPT) 66 U/L (16-63) Alkaline Phosphatase 95 U/L (46-116) C-Reactive Protein, Quantitative 1.0 mg/L (0-3.3) Total Protein 7.6 g/dL (6.4-8.2) Albumin 4.0 g/dL (3.4-5.0) Albumin/Globulin Ratio 1.1 (1.0-1.7) Laboratory Tests Test 09/10/21 04:10 White Blood Count 5.4 x10^3/uL (4.0-11.0) Red Blood Count 4.95 x10^6/uL (4.30-5.70) Hemoglobin 14.9 g/dL (13.0-17.5) Hematocrit 44.5 % (39.0-53.0) Mean Corpuscular Volume 90 fL (79-100) Mean Corpuscular Hemoglobin 30 pg (25-35) Mean Corpuscular Hemoglobin Concent 33 g/dL (31-37) Red Cell Distribution Width 12.2 % (11.5-14.5) Platelet Count 254 x10^3/uL (140-400) Brief Hospital Course Mr Miranda is a 31yo male with PMHx HLD, allergic rhinitis, arthritis, GERD presents to ED c/o bloody diarrhea x6 episodes beginning at midnight. Around 4 AM he started having sharp epigastric abdominal pain. Diarrhea was voluminous with bright red blood for the first couple episodes and pure blood for the last 4 episodes. Abdominal pain does not radiate sharp. No diarrhea since arriving here. Ongoing upper abdominal pain, some radiation to back. His primary physician started omeprazole for solid dyphagia a few years ago.which he has continued since - dysphagia resolved. No weight loss. No previous EGD or colonoscopy. No GB, liver, pancreas, or PUD history. He has not any antibiotics or recent travel. His last 2 meals were omelette and meat loaf. Other people ate the same food and no one else has been sick. He works construction for living. He does do smokeless tobacco regularly and also drinks more than 7 drinks a week. Is been counseled on cutting back. He also has left knee arthritis for which he sees Dr. Bueno and takes ibuprofen 800 mg up to 3 times daily for this WBC 5.7, Hb 14.9, platelets 260, NA 137, K4.1, BUN 13, CR 0.9, glucose 110, ALT 66 AST 34 bilirubin 0.4, albumin 4 CT abdomen pelvis no acute findings Tachycardic in ED with nausea and pain 7/10. Admitted for further care. Had 1 bowel movement this morning pain is significantly better. Bowel movement was on some soft stool no significant blood. Hb 14.9. Discussed with GI view. Advance diet go home with outpatient GI follow-up take PPI twice daily for the next month. Smoking cessation and alcohol reduction counseling undertaken for 12 minutes. CRP 1, less likely IBD Consults: GI Problem list: Intractable abdominal pain- IV morphine -->fentanyl. Possibly from UGIB, possibly alcoholic gastritis Bloody diarrhea - will r/o infectious etiology, salmonella/shigella/e. coli. GI consulted. Trend Hb. with family h/o UC will check CRP as well. Needs outpatient colonoscopy and fecal calprotectin. HLD - statin Morbid obesity - counseled on lifestyle modification Tobacco use - counseled on cessation Seasonal allergies - cont PPI GERD - restart PPI, counseled on ETOH and tobacco cessation Greater than 30 minutes spent on d/c home with outpatient GI follow up Discharge Information Condition at Discharge: Improved Follow Up: Weeks (1) Disposition/Orders: D/C to Home Scheduled Atorvastatin Calcium (Atorvastatin Calcium) 10 Mg Tablet, 1 TAB PO DAILY for high cholesterol, #30 Ref 5 (Reported) Entered as Reported by: HUANG LEWIS on 12/02/18 1140 Last Action: Reviewed on 09/09/21 1556 by JANEEN CALI Azelastine Hcl (Azelastine Hcl) 137 Mcg/0.137 Ml [place].pump, 1 SPRAY NS BID for CONTROL SINUS/ALLERGIES, (Reported) Entered as Reported by: JUSTIN CARSON on 09/28/19 1205 Last Action: Reviewed on 09/09/21 1556 by JANEEN CALI Levocetirizine Dihydrochloride (Xyzal) 5 Mg Tablet, 5 MG PO DAILY for CONTROL ALLERGIES, (Reported) Entered as Reported by: JUSTIN CARSON on 09/28/19 1205 Last Action: Reviewed on 09/09/21 1556 by JANEEN CALI Montelukast Sodium (Montelukast Sodium Tablet ) 10 Mg Tablet, 10 MG PO DAILY for FOR ASTHMA, Ref 0 (Reported) Entered as Reported by: JUSTIN CARSON on 09/28/19 120 Last Action: Reviewed on 09/09/21 1556 by JANEEN CALI Omeprazole (Omeprazole) 40 Mg Capsule.dr, 1 CAP PO BID for stomach problem, #30 Ref 3 Prescribed by: CESILIA MARIE MD on 09/10/21 1054 Promethazine Hcl (Promethazine Hcl) 25 Mg Tablet, 1 TAB PO PRN Q6HRS for nausea MDD 4, #20 (Reported) 1 tablet every 6 hrs for the first 48 hr, then as needed for nausea Entered as Reported by: SHAQUILLE BREWER on 09/30/19 1843 Discontinued Medications Aspirin (Aspirin Ec) 325 Mg Tablet.dr, 1 TAB PO DAILY for prevent blood clots, #30 Prescribed by: JASON DOWD MD on 09/30/19 1834 Oxycodone/Apap 5-325 (Percocet 5-325 Mg Tablet ) 1 Each Tablet, 1 TAB PO PRN Q4HRS PRN for PAIN MDD 12 Tablet(s), #80 Ref 0 (Reported) Entered as Reported by: SHAQUILLE BREWER on 09/30/191838 Justicifation of Admission Dx: Justifications for Admission: Justification of Admission Dx: Yes CESILIA MARIE MD Sep 10, 2021 10:59
[2021-09-10 11:00] VITALS: BP 140/99
--- NOTE | 2021-09-10 15:24 | NUR ---
Discharge Note: VIRGEN MONIQUE Discharge instructions and discharge home medications reviewed with Patient and a copy given. All questions have been answered and understanding verbalized. The following instructions and handouts were given: follow up instructions, medication education Discontinued lines and drains: 18 gauge right AC, tip intact. patient tolerated well. Patient discharged to home with self care via .
[2021-09-11] MEDS ORDERED: PANTOPRAZOLE 40 MG TABLET.DR. PO SCH (07:30)
== END 2021-09-10 15:00 | disposition home or self-care (01) ==
LOC: ER 07:48 → INTOOBSV 10:11 → ED HOLD 10:11 → 5 NORTH 13:15
PROVIDERS: ADMIT Internal Medicine; ATTEND Internal Medicine
DX: K92.2 Gastrointestinal hemorrhage, unspecified (principal); E78.5 Hyperlipidemia, unspecified; E66.01 Morbid (severe) obesity due to excess calories; K21.9 Gastro-esophageal reflux disease without esophagitis; J30.2 Other seasonal allergic rhinitis; F17.210 Nicotine dependence, cigarettes, uncomplicated; M17.12 Unilateral primary osteoarthritis, left knee; R10.13 Epigastric pain; F12.90 Cannabis use, unspecified, uncomplicated; R13.10 Dysphagia, unspecified; Z90.49 Acquired absence of other specified parts of digestive tract; Z79.899 Other long term (current) drug therapy; Z98.890 Other specified postprocedural states; Z79.82 Long term (current) use of aspirin; Z68.41 Body mass index [BMI] 40.0-44.9, adult
CPT/HCPCS: 36415; 74177; 80053; 82274; 85025; 85027; 86140; 86850; 86900; 86901; 87205; 87505; 96374; 96375; 96376; 99285; C9113; G0378; J2270; J2405; J3010; Q9967; G0379